=== PATIENT | female | born 1990 | race Caucasian/White ===

== ENCOUNTER 2018-12-13 16:47 | Emergency (ER) | payer MEDICAID ==
[2018-12-13 16:53] VITALS: O2SAT 99
[2018-12-13] MEDS ORDERED: Midazolam 2 MG/2 ML VIAL IV ONE (17:11)
[2018-12-13] MEDS ORDERED: Ketamine 50 mg/ml Inj (10 ml) IV ONE (17:11)
[2018-12-13] MEDS ORDERED: Ketamine 50 mg/ml Inj (10 ml) ONE (17:14)
[2018-12-13] MEDS ORDERED: Midazolam 2 MG/2 ML VIAL ONE (17:14)
[2018-12-13 17:53] VITALS: BP 122/62; PULSE 81; RESP 18; TEMP 98.8
--- NOTE | 2018-12-13 17:55 | ED PDOC ---
Upper Extremity Pain/Injury Time Seen by Provider: 12/13/18 17:08 Chief Complaint (Nursing): Upper Extremity Problem/Injury Chief Complaint (Provider): Upper Extremity Problem/Injury History Per: Patient History/Exam Limitations: no limitations Onset/Duration Of Symptoms: Sudden Onset (x1 hr [employer] RECREATION [employer]IST) Current Symptoms Are (Timing): Still Present Additional Complaint(s): 28 year old female with pmHx of seizures, arrives to ED for an evaluation of pain and dislocation to right shoulder while stretching with arm raised above head, onset approximately 1 hour [employer]IST. He reports Hx of previous dislocation to the right shoulder in the past. Patient denies seizure activity today. PCP: none provided Past Medical History Reviewed: Historical Data, Nursing Documentation, Vital Signs Vital Signs: Last Vital Signs Temp 98.4 F 12/13/18 16:52 Pulse 108 H 12/13/18 16:52 Resp 16 12/13/18 16:52 BP 107/71 12/13/18 16:52 Pulse Ox 99 12/13/18 16:52 - Medical History PMH: Seizures - Surgical History Surgical History: No Surg Hx - Family History Family History: States: Unknown Family Hx - Home Medications Home Medications: Ambulatory Orders Medication Instructions Recorded Naproxen [Naprosyn] 500 mg PO Q12H #20 tab 12/13/18 - Allergies Allergies/Adverse Reactions: Allergies Allergy/AdvReac Type Severity Reaction Status Date / Time No Known Allergies Allergy Verified 12/13/18 16:52 Review of Systems ROS Statement: Except As Marked, All Systems Reviewed And Found Negative Musculoskeletal: Positive for: Shoulder Pain (right-sided with dislocation) Neurological: Negative for: Seizures Physical Exam - Reviewed Nursing Documentation Reviewed: Yes Vital Signs Reviewed: Yes - Physical Exam Appears: Positive for: Uncomfortable Pulses-Radial (L): 2+ (2/4) Pulses-Radial (R): 2+ (2/4) Extremity: Positive for: Tenderness (right shoulder), Deformity (right inferior shoulder dislocation. Unable to raise or adduct affected arm.). Negative for: Normal ROM Neurologic/Psych: Positive for: Alert, Oriented. Negative for: Motor/Sensory Deficits - ECG O2 Sat by Pulse Oximetry: 99 (RA) Pulse Ox Interpretation: Normal Medical Decision Making Medical Decision Making: Time: 1707 Initial Plan: * XR right shoulder * Ketalar 30mg IV * Versed inj 1mg IV Time: 1709 --Pre-XR right shoulder FINDINGS: BONES: No visible fracture identified. JOINTS: Anterior inferior dislocation of the right humeral head relative to the glenoid. SOFT TISSUES: Normal. 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 IMPRESSION: Dislocated right shoulder. Time: 1729 --Right shoulder reduction (see procedure note). Time: 1811 --Post-XR right shoulder FINDINGS: BONES: Normal. No fracture. JOINTS: Normal. Glenohumeral and acromioclavicular joints preserved. No osteoarthritis. SOFT TISSUES: Normal. OTHER FINDINGS: None. IMPRESSION: Normal radiographs of the right shoulder. Anatomic reduction with return of the glenohumeral relationship. No visible fracture. Scribe Attestation: Documented by Lucila Westbrook, acting as a scribe for Jose Antonio Pablo MD. Provider Scribe Attestation: All medical record entries made by the Scribe were at my direction and personally dictated by me. I have reviewed the chart and agree that the record accurately reflects my personal performance of the history, physical exam, medical decision making, and the department course for this patient. I have also personally directed, reviewed, and agree with the discharge instructions and disposition. Procedures - Time-Out Type of Procedure: shoulder reduction Site of Procedure: right shoulder Correct Patient: Yes Correct Procedure: Yes Correct Site Marked: Yes X-Ray Marked: Yes Physician Name: Bev - Joint Reduction Joint Reduction Site: shoulder (R) Conscious Sedation: No Reduction Attempts: 1 Post Joint Reduction Film: joint reduced Progress: Time: 1729 --Verbal consent obtained from patient. --Gentle traction, massage, adduction performed using Milch technique. --Patient requesting no sedatives or pain medications to be given. --Right shoulder reduction attempt successful. --Right arm and shoulder are neurovascularly intact post reduction. Post XR reveals good reduction, no fractures. --Patient tolerated procedure well without complications. Disposition - Clinical Impression Clinical Impression: Anterior shoulder dislocation - Patient ED Disposition Is Patient to be Admitted: No Counseled Patient/Family Regarding: Studies Performed, Diagnosis, Need For Followup, Rx Given - Disposition Referrals: Hima Garcia MD [Medical Doctor] - Disposition: Routine/Home Disposition Time: 18:00 Condition: FAIR Prescriptions: Naproxen [Naprosyn] 500 mg PO Q12H #20 tab Instructions: Shoulder Dislocation Forms: [employer] ([place])
--- NOTE | 2018-12-13 17:56 | RAD ---
Date of service: 12/13/2018 PROCEDURE: Radiographs of the Right Shoulder HISTORY: dislocation COMPARISON: No prior. FINDINGS: BONES: No visible fracture identified. JOINTS: Anterior inferior dislocation of the right humeral head relative to the glenoid. SOFT TISSUES: Normal. OTHER FINDINGS: Incomplete visualization COLOR CHECKER shunt paraffin area. IMPRESSION: Dislocated right shoulder.
--- NOTE | 2018-12-13 18:16 | RAD ---
Date of service: 12/13/2018 PROCEDURE: Radiographs of the Right Shoulder HISTORY: post reduction COMPARISON: December 12, 2018 FINDINGS: BONES: Normal. No fracture. JOINTS: Normal. Glenohumeral and acromioclavicular joints preserved. No osteoarthritis. SOFT TISSUES: Normal. OTHER FINDINGS: None. IMPRESSION: Normal radiographs of the right shoulder. Anatomic reduction with return of the glenohumeral relationship. No visible fracture.
== END 2018-12-13 18:45 | disposition home or self-care (01) ==
LOC: H.ER 16:47
DX: S43.004A Unspecified dislocation of right shoulder joint, initial encounter (principal); X50.9XXA Other and unspecified overexertion or strenuous movements or postures, initial encounter; Y92.89 Other specified places as the place of occurrence of the external cause

== ENCOUNTER 2019-03-21 06:30 | Emergency (ER) | payer MEDICAID ==
[2019-03-21] MEDS ORDERED: Sodium Chloride 0.9% 1,000 ML IV STA (07:45)
--- NOTE | 2019-03-21 07:51 | ED PDOC ---
Upper Extremity Pain/Injury Time Seen by Provider: 03/21/19 07:16 Chief Complaint (Nursing): Upper Extremity Problem/Injury Chief Complaint (Provider): shoulder dislocation History Per: Patient History/Exam Limitations: no limitations Onset/Duration Of Symptoms: Days (today) Current Symptoms Are (Timing): Still Present Additional Complaint(s): Pt. with right shoulder dislocation after getting up from bed. States she heard a pop. Has pain to the shoulder. No numbness, tingles, weakness. Limited ability to move it. No injury elsewhere. Has had similar 6-7x in the past. Last time in Nov and came here. Past Medical History Reviewed: Historical Data, Nursing Documentation, Vital Signs Vital Signs: Last Vital Signs Temp 98.2 F 03/21/19 06:43 Pulse 85 03/21/19 06:43 Resp 17 03/21/19 06:43 BP 96/71 L 03/21/19 06:43 Pulse Ox 99 03/21/19 06:43 Primary Care Provider: Doctor,Conversion - Medical History PMH: Seizures Other PMH: shoulder dislocations - Surgical History Surgical History: No Surg Hx - Family History Family History: States: Unknown Family Hx - Home Medications Home Medications: Ambulatory Orders Medication Instructions Recorded Ibuprofen [Motrin] 600 mg PO TID 7 Days tab 03/21/19 - Allergies Allergies/Adverse Reactions: Allergies Allergy/AdvReac Type Severity Reaction Status Date / Time No Known Allergies Allergy Verified 03/21/19 08:46 Review of Systems ROS Statement: Except As Marked, All Systems Reviewed And Found Negative Musculoskeletal: Positive for: Shoulder Pain Physical Exam - Reviewed Nursing Documentation Reviewed: Yes Vital Signs Reviewed: Yes - Physical Exam Appears: Positive for: Uncomfortable Head Exam: Positive for: ATRAUMATIC, NORMAL INSPECTION, NORMOCEPHALIC Skin: Positive for: Normal Color, Warm, DRY Eye Exam: Positive for: EOMI, Normal appearance, PERRL ENT: Positive for: Normal ENT Inspection Neck: Positive for: Normal, Painless ROM Cardiovascular/Chest: Positive for: Regular Rate, Rhythm Respiratory: Positive for: CNT, Normal Breath Sounds Pulses-Radial (R): 2+ Back: Positive for: Normal Inspection. Negative for: L CVA Tenderness, R CVA Tenderness Extremity: Positive for: Tenderness (R shoulder with deformity in dislocated appearance). Negative for: Normal ROM (limited ROM of shoulder R; elbow and wrist with no issues) Neurological/Psych: Positive for: Awake, Alert, Normal Tone - ECG O2 Sat by Pulse Oximetry: 99 Pulse Ox Interpretation: Normal - Radiology X-Ray: Interpreted by Me, Viewed By Me X-Ray Interpretation: Other (1st xr-ray shoulder dislocation; 2nd x-ray: reduced shoulder dislocation) - Progress ED Course And Treament: 804: Pt. listed as on previous visit 11/2018. Pt. had dislocation at that time and refused pain meds. Reduced without them. 1100: Pt. tolerated procedure with no incident. AAOx3. In splint. Nitrous tolerated well. No pain. Wants to go home. Fu with pcp and ortho that she has already. Boyfriend at bedside and will take pt. home. Procedures - Splinting Location: R shoulder Pre-Made Type: shoulder immobilizer Pre-Proc Neuro Vasc Exam: normal Post-Proc Neuro Vasc Exam: normal - Joint Reduction Joint Reduction Site: shoulder (R) Conscious Sedation: No Reduction Attempts: 1 Pre-Procedure NV Exam: Yes Post Joint Reduction Film: joint reduced Progress: Nitrous used for sedation Traction-counter traction used to reduce R shoulder. Shoulder reduced with no incident. Pt. vitals maintained during procedure. Disposition - Clinical Impression Clinical Impression: Anterior shoulder dislocation - Patient ED Disposition Is Patient to be Admitted: No Counseled Patient/Family Regarding: Studies Performed, Diagnosis, Need For Followup, Rx Given - Disposition Referrals: [facility] [Outside] - 03/24/19 Disposition: Routine/Home Disposition Time: 12:01 Condition: STABLE Additional Instructions: Return if not better in 3 days. See your orthopedic doctor without fail for further evaluation. Prescriptions: Ibuprofen [Motrin] 600 mg PO TID 7 Days tab Instructions: Shoulder Dislocation Forms: [facility] School/Work Excuse
[2019-03-21] MEDS ORDERED: Morphine 4 MG/ML VIAL IV ONE (08:14)
[2019-03-21] MEDS ORDERED: Morphine 4 MG/ML VIAL ONE (08:21)
[2019-03-21 08:45] VITALS: RESP 18
[2019-03-21] MEDS ORDERED: Midazolam 2 MG/2 ML VIAL ONE (09:25)
--- NOTE | 2019-03-21 11:09 | RAD ---
Date of service: 03/21/2019 PROCEDURE: Radiographs of the Right Shoulder HISTORY: post reduction shoulder COMPARISON: 03/21/2019 8:06 a.m. TECHNIQUE: One views obtained. FINDINGS: BONES: Status post successful closed reduction right glenohumeral dislocation. Limited evaluation. No gross fracture. Acromioclavicular articulation intact. JOINTS: Normal. Glenohumeral and acromioclavicular joints preserved. No osteoarthritis. SOFT TISSUES: Normal. OTHER FINDINGS: None. IMPRESSION: Limited examination. Successful close reduction right glenohumeral dislocation.
--- NOTE | 2019-03-21 11:10 | RAD ---
PROCEDURE: Radiographs of the right humerus. HISTORY: pain COMPARISON: None. TECHNIQUE: Three views obtained. FINDINGS: BONES: No fracture. Right glenohumeral anterior dislocation noted. SOFT TISSUES: Normal. OTHER FINDINGS: None. IMPRESSION: No acute fracture. Anterior dislocation right glenohumeral joint.
--- NOTE | 2019-03-21 11:12 | RAD ---
Date of service: 03/21/2019 PROCEDURE: Radiographs of the Right Shoulder HISTORY: shoulder pain; y view too please COMPARISON: No prior. TECHNIQUE: Two views obtained. FINDINGS: BONES: Normal. No fracture. JOINTS: Anterior dislocation right glenohumeral articulation. Acromioclavicular articulation is preserved. SOFT TISSUES: Normal. OTHER FINDINGS: None. IMPRESSION: Anterior dislocation right glenohumeral joint.
[2019-03-21 12:09] VITALS: BP 99/59; PULSE 75; TEMP 97.9; O2SAT 100
== END 2019-03-21 12:20 | disposition home or self-care (01) ==
LOC: H.ER 06:30 → MERGE 06:30 → H.ER 12:20
DX: S43.004A Unspecified dislocation of right shoulder joint, initial encounter (principal); X50.9XXA Other and unspecified overexertion or strenuous movements or postures, initial encounter; Y92.89 Other specified places as the place of occurrence of the external cause
CPT/HCPCS: 73030; 73060; 81025; 96361; 96374; 96375; 99285; J1885; J2270; J7030